=== PATIENT | female | born 1955 ===

== ENCOUNTER → 2017-11-20 | Outpatient (CLI) | payer OTHER | LOC: MERGE 20:00 → FCPNEURO 20:00 | PROVIDERS: ATTEND Student in an Organized Health Care Education/Training Program | DX: G47.33 Obstructive sleep apnea (adult) (pediatric) (principal) ==

== ENCOUNTER → 2018-02-03 | Outpatient (CLI) | payer OTHER | LOC: FIMAGING 13:18 | PROVIDERS: ATTEND Internal Medicine | DX: M81.0 Age-related osteoporosis without current pathological fracture (principal); Z78.0 Asymptomatic menopausal state; Z85.3 Personal history of malignant neoplasm of breast; Z12.31 Encounter for screening mammogram for malignant neoplasm of breast ==